=== PATIENT | female | born 1980 | race African-American/Black ===

== ENCOUNTER 2020-01-23 06:51 | Emergency (ER) | payer MEDICAID ==
[~2020-01-23] VITALS: Ht 177.8 cm; Wt 118.0 kg
[2020-01-23 10:28] LABS: BASOPHILS % 0.5 % (0.0-2.0); CHLORIDE 108 mEq/L (98-107); EOSINOPHILS % 0.4 % (0.0-5.0); LYMPHOCYTES % 40.9 % (20.0-50.0); MEAN CORPUSCULAR HEMOGLOBIN 18.4 pg (28.0-32.0); MONOCYTES % 6.7 % (2.0-8.0); NEUTROPHILS % 51.5 % (40.0-76.0); PLATELET 278 x1000/uL (130-400); RED BLOOD CELL COUNT 4.35 mill/uL (4.2-5.4); RED CELL DISTRIBUTION WIDTH 18.9 % (11.6-14.6)
[2020-01-23 10:42] LABS: CLARITY URINE CLOUDY (CLEAR); COLOR URINE YELLOW (YELLOW); KETONES URINE NEGATIVE (NEGATIVE); LEUKOCYTE ESTERASE URINE NEGATIVE (NEGATIVE); NITRITE URINE NEGATIVE (NEGATIVE); OCCULT BLOOD URINE NEGATIVE (NEGATIVE); PH URINE 7.5 (4.5-8.0); PROTEIN URINE NEGATIVE (NEGATIVE); SPECIFIC GRAVITY URINE 1.018 (1.005-1.030)
[2020-01-23] MEDS ORDERED: ACETAMINOPHEN 325MG TABLET PO ONE (11:00)
[2020-01-23 11:05] LABS: PLATELET ESTIMATE NORMAL
[2020-01-23] MEDS ORDERED: KETOROLAC 30MG/ML VIAL IV ONE (11:15)
[2020-01-23 13:38] VITALS: BP 160/80
== END 2020-01-23 14:54 | disposition home or self-care (01) ==
LOC: ER 06:51
DX: D21.9 Benign neoplasm of connective and other soft tissue, unspecified (principal); R10.30 Lower abdominal pain, unspecified; N92.6 Irregular menstruation, unspecified; J45.909 Unspecified asthma, uncomplicated; I10 Essential (primary) hypertension; D64.9 Anemia, unspecified; Z98.890 Other specified postprocedural states; Z88.1 Allergy status to other antibiotic agents; Z88.8 Allergy status to other drugs, medicaments and biological substances
CPT/HCPCS: 36415; 76830; 76856; 80053; 81003; 81025; 85025; 93005; 96374; 99285; J1885